=== PATIENT | male | born 1965 | race Hispanic/Latino ===

== ENCOUNTER 2023-05-17 03:36 | Inpatient (IN) | payer SELFPAY ==
[2023-05-17] VITALS (125 sets, daily range): BP systolic 85–139; BP diastolic 51–76
[~2023-05-17] VITALS: Ht 167.6 cm; Wt 86.0 kg
[2023-05-17 04:48] LABS: BASO% 0.2 % (0-3); EOS% 1.6 % (0-8); HEMATOCRIT 43.5 % (39.0-50.0); HEMOGLOBIN 14.4 g/dl (14.0-18.0); IMMATURE GRANULOCYTES 1.8 % (0.0-5.0); LYMPH% 18.3 % (15-41); MEAN CELL VOLUME 88.1 fL CALC (80.0-100.0); MEAN CORPUSCULAR HGB 29.1 pG CALC (26.0-32.0); MEAN CORPUSCULAR HGB CONC 33.1 g/dL CAL (32.0-36.0); MONO% 3.3 % (2-13); NEUT# 19.62 thou/uL (1.82-7.42); NEUT% 74.8 % (42-76); RED BLOOD COUNT 4.94 mill/uL (4.70-6.10); RED CELL DISTRI WIDTH 12.5 % (11.5-15.5)
[2023-05-17 04:50] LABS: ALBUMIN 3.9 g/dL (3.2-5.0); ALKALINE PHOSPHATASE 59 u/l (38-126); AMYLASE 161 u/l (30-110); ANION GAP 14 (6-22 (CALC)); BILIRUBIN, TOTAL 0.7 mg/dL (0.2-1.3); BUN 20 mg/dL (9-20); BUN/CREATININE RATIO 20 (12-20 (CALC)); CARBON DIOXIDE 26 mmol/l (22-30); CHLORIDE 105 mmol/l (95-108); GFR FOR AFR.AMER. > 60 ML/MIN (>=60 (CALC)); GFR OTHER RACES > 60 ML/MIN (>=60 (CALC)); LIPASE 414 u/l (23-300); POTASSIUM 3.1 mmol/l (3.5-5.1); SGOT/AST 175 u/l (17-59); SODIUM 142 mmol/l (137-146); TOTAL PROTEIN 6.8 g/dL (6.3-8.2)
[2023-05-17 04:53] LABS: URINE BILIRUBIN - DIPSTICK NEGATIVE (NEGATIVE); URINE BLOOD DIPSTICK LARGE (NEGATIVE); URINE COLOR YELLOW; URINE GLUCOSE - DIPSTICK NEGATIVE (NEGATIVE); URINE KETONE NEGATIVE (NEGATIVE); URINE LEUK ESTERASE NEGATIVE (NEGATIVE); URINE NITRITE - DIPSTICK NEGATIVE (Negative); URINE PROTEIN - DIPSTICK 100 mg/dL (NEG-TRACE); URINE SPECIFIC GRAVITY 1.015; URINE UROBILINOGEN - DIPSTICK 0.2 E.U./dL (0.2)
[2023-05-17 05:00] LABS: URINE HYALINE CAST RARE lpf (NONE-RARE); URINE WBC 0-2 WBC/hpf (0-5)
[2023-05-17] MEDS ORDERED: INHALER FOR ASTHMA (05:15)
[2023-05-18] VITALS (96 sets, daily range): BP systolic 92–136; BP diastolic 51–82
[2023-05-18 05:26] LABS: MEAN CELL VOLUME 86.9 fL CALC (80.0-100.0); MEAN CORPUSCULAR HGB 29.7 pG CALC (26.0-32.0); MEAN CORPUSCULAR HGB CONC 34.2 g/dL CAL (32.0-36.0); RED BLOOD COUNT 4.11 mill/uL (4.70-6.10)
[2023-05-18 05:31] LABS: HEMATOCRIT 35.7 % (39.0-50.0); HEMOGLOBIN 12.2 g/dl (14.0-18.0)
[2023-05-18 06:02] LABS: ALKALINE PHOSPHATASE 53 u/l (38-126); ANION GAP 10 (6-22 (CALC)); BILIRUBIN, TOTAL 0.6 mg/dL (0.2-1.3); BUN 16 mg/dL (9-20); BUN/CREATININE RATIO 18 (12-20 (CALC)); CARBON DIOXIDE 22 mmol/l (22-30); CHLORIDE 113 mmol/l (95-108); CREATININE 0.9 mg/dL (0.7-1.3); GFR FOR AFR.AMER. > 60 ML/MIN (>=60 (CALC)); GFR OTHER RACES > 60 ML/MIN (>=60 (CALC)); MAGNESIUM 1.3 mg/dL (1.6-2.3); POTASSIUM 3.3 mmol/l (3.5-5.1); SGOT/AST 68 u/l (17-59); SODIUM 141 mmol/l (137-146); TOTAL PROTEIN 5.5 g/dL (6.3-8.2)
[2023-05-18 06:04] LABS: ALBUMIN 2.8 g/dL (3.2-5.0)
[2023-05-18 09:10] LABS: CHOLESTEROL HDL RATIO 2.5 (<4.4 (CALC))
[2023-05-18 09:31] LABS: C-REACTIVE PROTEIN 21.7 mg/dL (0-0.9)
[2023-05-19] VITALS (89 sets, daily range): BP systolic 91–147; BP diastolic 53–96
[2023-05-19 05:36] LABS: HEMATOCRIT 30.4 % (39.0-50.0); HEMOGLOBIN 10.4 g/dl (14.0-18.0); MEAN CELL VOLUME 87.9 fL CALC (80.0-100.0); MEAN CORPUSCULAR HGB 30.1 pG CALC (26.0-32.0); MEAN CORPUSCULAR HGB CONC 34.2 g/dL CAL (32.0-36.0); RED BLOOD COUNT 3.46 mill/uL (4.70-6.10); RED CELL DISTRI WIDTH 13.6 % (11.5-15.5)
[2023-05-19 05:40] LABS: ALBUMIN 2.5 g/dL (3.2-5.0); ALKALINE PHOSPHATASE 51 u/l (38-126); ANION GAP 7 (6-22 (CALC)); BILIRUBIN, TOTAL 0.4 mg/dL (0.2-1.3); BUN 17 mg/dL (9-20); BUN/CREATININE RATIO 22 (12-20 (CALC)); CARBON DIOXIDE 23 mmol/l (22-30); CHLORIDE 116 mmol/l (95-108); CREATININE 0.8 mg/dL (0.7-1.3); GFR FOR AFR.AMER. > 60 ML/MIN (>=60 (CALC)); GFR OTHER RACES > 60 ML/MIN (>=60 (CALC)); POTASSIUM 3.3 mmol/l (3.5-5.1); SGOT/AST 43 u/l (17-59); SODIUM 143 mmol/l (137-146)
[2023-05-19 05:45] LABS: MAGNESIUM 2.3 mg/dL (1.6-2.3)
[2023-05-20] VITALS (33 sets, daily range): BP systolic 115–148; BP diastolic 65–84
[2023-05-20 05:36] LABS: HEMATOCRIT 35.2 % (39.0-50.0); MEAN CELL VOLUME 87.1 fL CALC (80.0-100.0); MEAN CORPUSCULAR HGB 29.7 pG CALC (26.0-32.0); MEAN CORPUSCULAR HGB CONC 34.1 g/dL CAL (32.0-36.0); RED BLOOD COUNT 4.04 mill/uL (4.70-6.10); RED CELL DISTRI WIDTH 13.3 % (11.5-15.5)
[2023-05-20 06:02] LABS: ALKALINE PHOSPHATASE 57 u/l (38-126); BUN 16 mg/dL (9-20); BUN/CREATININE RATIO 20 (12-20 (CALC)); CHLORIDE 109 mmol/l (95-108); CREATININE 0.8 mg/dL (0.7-1.3); GFR FOR AFR.AMER. > 60 ML/MIN (>=60 (CALC)); GFR OTHER RACES > 60 ML/MIN (>=60 (CALC)); MAGNESIUM 2.2 mg/dL (1.6-2.3); POTASSIUM 3.1 mmol/l (3.5-5.1); SGOT/AST 47 u/l (17-59); SODIUM 142 mmol/l (137-146); TOTAL PROTEIN 5.4 g/dL (6.3-8.2)
[2023-05-20 06:09] LABS: ANION GAP 8 (6-22 (CALC)); BILIRUBIN, TOTAL 0.6 mg/dL (0.2-1.3); CARBON DIOXIDE 28 mmol/l (22-30)
[2023-05-20] MEDS ORDERED: ATORVASTATIN CA10 MG PO (10:00)
[2023-05-20] MEDS ORDERED: OMNICEF300 MG PO (10:01)
[2023-05-20] MEDS ORDERED: ADLT ASA LOW81 MG PO (10:01)
== END 2023-05-20 11:30 | disposition home or self-care (01) | DRG 296 ==
LOC: ED 04:20 → ED-I 06:50 → ED 07:07 → ICU 07:08
PROVIDERS: Emergency Medicine; ADMIT Internal Medicine; ATTEND Internal Medicine
PROC: 0BH17EZ Insertion of Endotracheal Airway into Trachea, Via Natural or Artificial Opening (ICD-10-PCS; principal; 2023-05-17)
PROC: 5A1945Z Respiratory Ventilation, 24-96 Consecutive Hours (ICD-10-PCS; 2023-05-17)
PROC: 0T9B70Z Drainage of Bladder with Drainage Device, Via Natural or Artificial Opening (ICD-10-PCS; 2023-05-17)
PROC: 02HV33Z Insertion of Infusion Device into Superior Vena Cava, Percutaneous Approach (ICD-10-PCS; 2023-05-17)
PROC: 3E043XZ Introduction of Vasopressor into Central Vein, Percutaneous Approach (ICD-10-PCS; 2023-05-17)
DX: I46.9 Cardiac arrest, cause unspecified (principal); J69.0 Pneumonitis due to inhalation of food and vomit; J96.01 Acute respiratory failure with hypoxia; J45.901 Unspecified asthma with (acute) exacerbation; A04.0 Enteropathogenic Escherichia coli infection; I24.8 Other forms of acute ischemic heart disease; M96.A3 Multiple fractures of ribs associated with chest compression and cardiopulmonary resuscitation; E87.6 Hypokalemia
CPT/HCPCS: J1644; J1650; J3475; Q3014